=== PATIENT | male | born 1940 | race Caucasian/White ===

== ENCOUNTER 2023-06-03 13:56 | Outpatient (CLI) | payer MEDICARE, OTHER, SELFPAY ==
--- NOTE | ~2023-06-03 | CT_ITS ---
EXAMINATION: CT soft tissue neck w con DATE: 06/03/2023 14:31 INDICATION: Localized neck swelling. TECHNIQUE: Computed tomography (CT) of the neck was performed with 75 mL Omnipaque-350 intravenous co ntrast. Automated exposure control and iterative reconstruction technique were employed. The dose-uri gth product was 444.67 mGy-cm. COMPARISON: None FINDINGS: There is mild scarring at the lung apices. There is mild emphysema. There are likely change s of ocular lens replacement surgeries. There are no pathologically enlarged lymph nodes. There is pl aque in the proximal internal carotid ovaries with less than 50% stenosis relative to normal distal a rtery lumen diameters. There is mucosal thickening in the pharynx and larynx, likely at least predomi nantly changes of radiation therapy. There is a permeative lytic lesion in left body of the mandible with pathologic fracture. There is mild cervical spondylosis. There are likely changes of ocular lens replacement surgeries. IMPRESSION: 1. Permeative lytic lesion of left body of the mandible with pathologic fracture. This finding may be secondary to osteomyelitis, osteoradionecrosis, or tumor invasion. Reviewed, dictated and finalized at location A. TECHNICIAN IMPRESSION: 1. Permeative lytic lesion of left body of the mandible with pathologic fractur e. This finding may be secondary to osteomyelitis, osteoradionecrosis, or tumor invasion.
[2023-06-03 14:25] LABS: Estimated Glomerular Filt Rate > 60
== END 2023-06-03 13:57 | disposition home or self-care (01) ==
PROVIDERS: PCP Family Medicine; Visit Provider Family Medicine
DX: R22.1 Localized swelling, mass and lump, neck (principal); K04.7 Periapical abscess without sinus; M86.9 Osteomyelitis, unspecified; R68.84 Jaw pain; Z85.89 Personal history of malignant neoplasm of other organs and systems
CPT/HCPCS: 70491; Q9967